=== PATIENT | female | born 1995 | race Caucasian/White ===

== ENCOUNTER 2019-02-11 06:26 | Day surgery (SDC) | payer BC, OTHER ==
[~2019-02-11 06:26] MED LIST: Buffered Lidocaine 1% SYRIN* 1 ML/SYRINGE INTRADERM ONE; Dexamethasone IV* 4 MG/ML 1 ML (4 MG) IV SLOW PU ONE; Famotidine IV* 10 MG/ML 2 ML (20 mg) IV ONE; Lactated Ringers 1000 ML Bag* 1,000 ML IV SCH
[2019-02-11] MEDS ORDERED: Dexamethasone IV* 4 MG/ML 1 ML (4 MG) ONE (07:03)
[2019-02-11] MEDS ORDERED: Famotidine IV* 10 MG/ML 2 ML (20 mg) ONE (07:03)
[2019-02-11] MEDS ORDERED: Midazolam* 1 MG/ML 2 ML VIAL (2 MG) ONE (07:52)
[2019-02-11] MEDS ORDERED: fentaNYL* 50 MCG/ML 2 ML VIAL (100 MCG VIAL) ONE (07:52)
[2019-02-11] MEDS ORDERED: Lidocaine 1% w EPI 1:100,000* MDV 20 ML VIAL ONE (08:17)
[2019-02-11] MEDS ORDERED: Silver Nitrate/Potassium Nitr* 1 EA STICK ONE (08:53)
[2019-02-11] MEDS ORDERED: Propofol* 10 MG/ML 20 ML BTL ONE (08:53)
[2019-02-11] MEDS ORDERED: Bacitracin OINTMENT* 0.5% 0.5 oz TUBE ONE (08:55)
[2019-02-11 09:29] VITALS: BP 115/61
--- NOTE | 2019-02-11 09:52 | OP ---
DATE OF OPERATION: 02/11/19 - [facility] DATE OF : 89 SURGEON: Evelio Vickers MD. ANESTHESIA: Local MAC. PRE-OP DIAGNOSIS: Partially imperforate hymen. POST-OP DIAGNOSIS: Partially imperforate hymen. OPERATIVE PROCEDURE: Hymenectomy. COMPLICATIONS: None. FINDINGS: On exam under anesthesia, there was a thick band going from anterior to posterior on the vaginal introitus consistent with a partially imperforate hymen. DESCRIPTION OF PROCEDURE: The patient identified and procedure identified as a partial hymenectomy. The patient was taken to the operating room and prepped and draped in the usual fashion in the dorsal lithotomy position under sedation. 1% lidocaine with epi was injected at the sites of excision. The bridge noted was excised using Metzenbaum scissors and then bovied using Bovie until good hemostasis was achieved. Silver nitrate was used as well and further injection with 1% lidocaine with epi. Good hemostasis verified. Bacitracin was applied and the patient returned to the recovery room in stable condition. [id number] #: [id number] MTDD
== END 2019-02-11 09:43 | disposition home or self-care (01) ==
LOC: OR 06:26
PROVIDERS: ATTEND Obstetrics & Gynecology
DX: N89.6 Tight hymenal ring (principal); J45.909 Unspecified asthma, uncomplicated; F17.290 Nicotine dependence, other tobacco product, uncomplicated; F41.9 Anxiety disorder, unspecified
CPT/HCPCS: 81025; A9270-GY; J1100; J2250; J2704; J3010